=== PATIENT | female | born 1975 | race American Indian/Alaskan Native ===

== ENCOUNTER 2021-08-16 18:23 | Emergency (ER) | payer MEDICARE ==
[2021-08-16 18:33] VITALS: BP 124/61
[2021-08-16] MEDS ORDERED: GABAPENTIN 300 MG CAP PO ONE (22:16)
[2021-08-16] MEDS ORDERED: KETOROLAC 30 MG/1 ML INJ IM ONE (22:16)
[2021-08-16] MEDS ORDERED: oxyCODONE /ACETAMINOPHEN 5-325MG TAB PO ONE (22:16)
[2021-08-16] MEDS ORDERED: ONDANSETRON 4 MG ODT TAB PO ONE (22:16)
[2021-08-16 22:34] LABS: HCG Qualitative,Urine Negative (Negative)
[2021-08-16 22:39] LABS: Bacteria,Urine 1+ /HPF (Negative); Bilirubin,Urine NEG (Negative); Blood,Urine LG (Negative); Color,Urine Yellow (Yellow); Mucus,Urine FEW /HPF; Protein,Urine <15 mg/dL mg/dL (Negative); Urobilinogen,Urine < 2.0 mg/dL (<2.0)
--- NOTE | 2021-08-17 06:10 | Emergency Department Report ---
ED Back Pain/Injury HPI - General Chief Complaint: Urogenital-Female Stated Complaint: LOWER AB PAIN Source: patient Limitations: No Limitations - History of Present Illness Initial Comments: Patient is a 46-year-old -Wel[place] female with a history of chronic low back pain due to chronic lumbar disc disease, chronic osteoarthritis and asthma who presents to the ED with complaint of acute exacerbation of her chronic low back pain for the last 1 week. Patient states that she previously took Percocet 10 mg - 325 mg tablets and gabapentin 300 mg 3 times a day as prescribed prescribed by her pain clinic but stated that she has not been to the pain clinic for over 4 months because she moved from the area where she used to stay. Patient states that she ran out of her medications for pain "a while ago" and that she usually takes Tylenol as needed for pain but in the last 1 week, despite taking the medication the pain has been constant and persistent with urinary frequency and urgency. Patient denies fall, traumatic injury, numbness and tingling or weakness of lower extremities bilaterally, chest pain, shortness of breath, fever and chills, abdominal pain, dysuria, vaginal bleeding, vaginal discharge, neck pain, nausea and vomiting or diarrhea. MD Complaint: back pain -: Gradual, year(s) (1) Similar Symptoms Previously: Yes (Chronic low back pain due to degenerative lumbar disc disease) Place: home Radiation: none Severity: severe Severity scale (0 -10): 8 Quality: sharp, aching Consistency: constant Improves With: none Worsens With: movement Context: while lifting, turning/twisting, bending Associated Symptoms: denies other symptoms. denies: confusion, weakness, chest pain, numbness, difficulty walking, cough, difficulty urinating, diaphoresis, incontinence, fever/chills, constipation, headaches, abdominal pain, loss of appetite, malaise, nausea/vomiting, rash, seizure, shortness of breath, syncope, other - Related Data Allergies Allergy/AdvReac Type Severity Reaction Status Date / Time shellfish derived Allergy Intermediate Shortness Verified 08/16/21 18:34 of Breath ED Review of Systems ROS: Stated complaint: LOWER AB PAIN Other details as noted in HPI Constitutional: denies: chills, fever Eyes: denies: eye pain, eye discharge, vision change ENT: denies: ear pain, throat pain Respiratory: denies: cough, shortness of breath, wheezing Cardiovascular: denies: chest pain, palpitations Endocrine: no symptoms reported Gastrointestinal: denies: abdominal pain, nausea, diarrhea Genitourinary: denies: urgency, dysuria, discharge Musculoskeletal: back pain (Chronic low back pain). denies: joint swelling, arthralgia Skin: denies: rash, lesions Neurological: denies: headache, weakness, paresthesias Psychiatric: denies: anxiety, depression Hematological/Lymphatic: denies: easy bleeding, easy bruising ED Past Medical Hx - Past Medical History Previous Medical History?: Yes Hx Arthritis: Yes Hx Asthma: Yes Additional medical history: Chronic low back pain - Surgical History Past Surgical History?: No ED Physical Exam - General Limitations: No Limitations General appearance: alert, in no apparent distress - Head Head exam: Present: atraumatic, normocephalic, normal inspection - Eye Eye exam: Present: normal appearance, PERRL, EOMI Pupils: Present: normal accommodation - ENT ENT exam: Present: normal exam, normal orophraynx, mucous membranes moist, TM's normal bilaterally, normal external ear exam - Neck Neck exam: Present: normal inspection, full ROM. Absent: tenderness - Respiratory Respiratory exam: Present: normal lung sounds bilaterally. Absent: respiratory distress, wheezes, rales, rhonchi, stridor, chest wall tenderness, accessory muscle use, decreased breath sounds, prolonged expiratory - Cardiovascular Cardiovascular Exam: Present: regular rate, normal rhythm, normal heart sounds. Absent: systolic murmur, diastolic murmur, rubs, gallop - GI/Abdominal GI/Abdominal exam: Present: soft, normal bowel sounds. Absent: tenderness, guarding, rebound, hyperactive bowel sounds, hypoactive bowel sounds, mass - Extremities Exam Extremities exam: Present: normal inspection, full ROM, normal capillary refill. Absent: tenderness, pedal edema, joint swelling, calf tenderness - Back Exam Back exam: Present: normal inspection, full ROM, tenderness (Palpable lumbosacral paraspinal musculoskeletal tenderness), CVA tenderness (L), muscle spasm, paraspinal tenderness. Absent: CVA tenderness (R), vertebral tenderness - Neurological Exam Neurological exam: Present: alert, oriented X3, CN II-XII intact, normal gait, reflexes normal - Psychiatric Psychiatric exam: Present: normal affect, normal mood - Skin Skin exam: Present: warm, dry, intact, normal color. Absent: rash ED Course Vital Signs 08/16/21 08/16/21 18:26 18:35 Temperature 98.8 F 98.8 F Pulse Rate 76 76 Respiratory 16 16 Rate Blood Pressure 124/61 124/61 [Right] O2 Sat by Pulse 98 98 Oximetry ED Medical Decision Making - Medical Decision Making This is a 46-year-old -[place] female with a history of chronic low back pain due to chronic lumbar disc disease, chronic osteoarthritis and asthma who presents to the ED with complaint of acute exacerbation of her chronic low back pain for the last 1 week. Patient states that she previously took Percocet 10 mg - 325 mg tablets and gabapentin 300 mg 3 times a day as prescribed prescribed her pain clinic but stated that she has not been to the pain clinic for over 4 months because she moved from the area where she used to stay. Patient states that she ran out of her medications for pain "a while ago" and that she usually takes Tylenol as needed for pain but in the last 1 week, despite taking the medication the pain has been constant and persistent with urinary frequency and urgency. In the ED, patient is alert and oriented x3 and is not in any distress. Patient is hemodynamically stable. Urinalysis showed significant urinary tract infection characterized by positive nitrite test in urinalysis. Patient however left the ED AMA prior to being given medications for pain and will be discharged from the ED. - Differential Diagnosis Chronic back pain; muscle spasm; muscle strain; UTI; pyelonephritis Critical care attestation.: If time is entered above; I have spent that time in minutes in the direct care of this critically ill patient, excluding procedure time. ED Disposition Clinical Impression: Acute exacerbation of chronic low back pain, Spasm of muscle of lower back, Acute urinary tract infection Disposition: 07 LEFT AGAINST MEDICAL ADVICE Is pt being admited?: No Does the pt Need Aspirin: No Condition: Undetermined Instructions: Muscle Cramps and Spasms, [id number], What You Need to Know About Chronic Back Pain, Urinary Tract Infection, Adult, [id number], Chronic Back Pain, [id number] Time of Disposition: 23:25
== END 2021-08-17 07:00 | disposition left against medical advice (07) ==
LOC: ED 18:23
DX: M54.50 Low back pain, unspecified (principal); M62.830 Muscle spasm of back; N39.0 Urinary tract infection, site not specified; Z91.013 Allergy to seafood
CPT/HCPCS: 81001; 81025; 99283; J1885; J3490; Q0162